=== PATIENT | female | born 1995 | race African-American/Black ===

== ENCOUNTER 2016-05-24 22:35 | Inpatient (IN) | payer OTHER ==
[2016-05-24 23:08] LABS: Hematocrit 40 % (35-47); Hemoglobin 12.7 g/dl (12.0-16.0); Mean Corpuscular HGB Conc 32 g/dl (31-36); Mean Corpuscular Hemoglobin 26 pg (27-31); Mean Corpuscular Volume 80 fL (80-97); Mean Platelet Volume 7 um3 (7.4-10.4); Red Blood Count 4.95 10^6/ul (4.0-5.4); Red Cell Distribution Width 14 % (10.5-15); White Blood Count 6.1 10^3/ul (3.5-10.8)
[2016-05-24 23:27] LABS: Urine Bacteria 1+ (Absent); Urine Bilirubin Negative (Negative); Urine Glucose Negative (Negative); Urine Nitrite Negative (Negative)
[2016-05-24 23:37] LABS: ALT 11 U/L (7-52); AST 13 U/L (13-39); Albumin 4.1 g/dL (3.2-5.2); Alkaline Phosphatase 53 U/L (34-104); Anion Gap 6 mmol/L (2-11); BUN/Creatinine Ratio 15.5 (8-20); Benzodiazepine Urine Screen None Detected (None Detect); Blood Urea Nitrogen 11 mg/dL (6-24); CO2 Carbon Dioxide 29 mmol/L (22-32); Calcium 9.8 mg/dL (8.6-10.3); Chloride 102 mmol/L (101-111); EGFR African American 133.6 (>60); EGFR Non-African American 103.9 (>60); Globulin 3.7 g/dL (2-4); Glucose 109 mg/dL (70-100); Sodium 137 mmol/L (133-145); Total Protein 7.8 g/dL (6.4-8.9)
[2016-05-24 23:40] LABS: Acetaminophen < 15 mcg/mL; Alcohol < 10 mg/dL (<10); Salicylate < 2.50 mg/dL (<30)
--- NOTE | 2016-05-24 23:46 | ED ---
Travis Morrissey Erika, scribed for Clifford Peng MD on 05/24/16 at 2325 . Psychiatric Complaint - HPI Summary HPI Summary: Patient is a 21-year-old female presenting to the ED with a CC of SI. Per police , patient's friend reports that pt stated she had a plan to kill herself. Friend also states that pt has been cutting herself, and police found a razor in her pocket. In the ED, patient states her friends were worried that she would hurt herself, but she denies SI. When asked if she had cut herself, she states "not tonight." Hx bipolar disorder. - History Of Current Complaint Time Seen by Provider: 05/24/16 22:35 Hx Obtained From: Patient, Other: - Police Onset/Duration: Gradual Onset, Still Present Timing: Constant Severity Currently: Moderate Character: Depressed Alleviating Factor(s): Nothing Related History: Positive For: Prior Psychiatric Issues Has Suicidal: Reports: Thoughts - per patient's friend, patient denies, With A Plan - per patient's friend, patient denies - Allergies/Home Medications Allergies/Adverse Reactions: Allergies Allergy/AdvReac Type Severity Reaction Status Date / Time No Known Allergies Allergy Verified 05/24/16 22:42 Home Medications: Home Medications Lamictal 200 mg PO BID 05/25/16 [History Confirmed 05/25/16] Zoloft 150 mg PO BEDTIME 05/25/16 [History Confirmed 05/25/16] PMH/Surg Hx/FS Hx/Imm Hx Endocrine/Hematology History: Denies: Hx Diabetes Cardiovascular History: Denies: Hx Congestive Heart Failure, Hx Hypertension Respiratory History: Reports: Hx Asthma History: Reports: Other Problems/Disorders - ovarian cysts Denies: Hx Renal Disease Psychiatric History: Reports: Hx Bipolar Disorder - Immunization History Date of Tetanus Vaccine: 2012 Date of Influenza Vaccine: 2013 - Family History Known Family History: Positive: Other - bipolar disorder - Social History Occupation: Student Lives: With Family Alcohol Use: Occasionally Hx Substance Use: No Substance Use Type: Reports: None Hx Tobacco Use: No Smoking Status (MU): Never Smoked Tobacco Review of Systems Negative: Fever Skin: Other - healed cuts on arms from cutting Positive: Depressed - with SI per friend All Other Systems Reviewed And Are Negative: Yes Physical Exam Triage Information Reviewed: Yes Vital Signs On Initial Exam: Temp Pulse Resp BP Pulse Ox 98.6 F 100 16 144/85 98 05/24/16 22:35 05/24/16 22:35 05/24/16 22:35 05/24/16 22:35 05/24/16 22:35 Vital Signs Reviewed: Yes Appearance: Positive: Well-Appearing, No Pain Distress Skin: Positive: Warm Head/Face: Positive: Normal Head/Face Inspection Eyes: Positive: JOAQUIN ENT: Positive: Hearing grossly normal Neck: Positive: Supple Respiratory/Lung Sounds: Positive: Breath Sounds Present Cardiovascular: Positive: RRR Abdomen Description: Positive: Nontender, Soft Neurological: Positive: Sensory/Motor Intact, Alert, Oriented to Person Place, Time Psychiatric: Positive: Depressed Diagnostics - Vital Signs Vital Signs Temp Pulse Resp BP Pulse Ox 05/24/16 22:35 98.6 F 100 16 144/85 98 - Laboratory Lab Results: Lab Results 05/24/16 05/24/16 05/24/16 Range/Units 23:00 23:00 23:00 WBC 6.1 (3.5-10.8) 10^3/ul RBC 4.95 (4.0-5.4) 10^6/ul Hgb 12.7 (12.0-16.0) g/dl Hct 40 (35-47) % MCV 80 (80-97) fL MCH 26 L (27-31) pg MCHC 32 (31-36) g/dl RDW 14 (10.5-15) % Plt Count 334 (150-450) 10^3/ul MPV 7 L (7.4-10.4) um3 Neut % (Auto) 58.3 (38-83) % Lymph % (Auto) 33.4 (25-47) % [place] % (Auto) 6.9 (1-9) % Eos % (Auto) 0.8 (0-6) % Baso % (Auto) 0.6 (0-2) % Absolute Neuts (auto) 3.5 (1.5-7.7) 10^3/ul Absolute Lymphs (auto) 2.0 (1.0-4.8) 10^3/ul Absolute Monos (auto) 0.4 (0-0.8) 10^3/ul Absolute Eos (auto) 0.1 (0-0.6) 10^3/ul Absolute Basos (auto) 0 (0-0.2) 10^3/ul Absolute Nucleated RBC 0 10^3/ul Nucleated RBC % 0 Sodium 137 (133-145) mmol/L Potassium 4.0 (3.5-5.0) mmol/L Chloride 102 (101-111) mmol/L Carbon Dioxide 29 (22-32) mmol/L Anion Gap 6 (2-11) mmol/L BUN 11 (6-24) mg/dL Creatinine 0.71 (0.51-0.95) mg/dL Est GFR ( Amer) 133.6 (>60) Est GFR (Non-Af Amer) 103.9 (>60) BUN/Creatinine Ratio 15.5 (8-20) Glucose 109 H (70-100) mg/dL Calcium 9.8 (8.6-10.3) mg/dL Total Bilirubin 0.20 (0.2-1.0) mg/dL AST 13 (13-39) U/L ALT 11 (7-52) U/L Alkaline Phosphatase 53 (34-104) U/L Total Protein 7.8 (6.4-8.9) g/dL Albumin 4.1 (3.2-5.2) g/dL Globulin 3.7 (2-4) g/dL Albumin/Globulin Ratio 1.1 (1-3) TSH Pending Urine Color Yellow Urine Appearance Cloudy Urine pH 5.0 (5-9) Ur Specific Crescent 1.024 (1.010-1.030) Urine Protein 2+(100 mg/dl) H (Negative) Urine Ketones Negative (Negative) Urine Blood Negative (Negative) Urine Nitrate Negative (Negative) Urine Bilirubin Negative (Negative) Urine Urobilinogen Negative (Negative) Ur Leukocyte Esterase 3+ H (Negative) Urine WBC (Auto) Trace(0-5/hpf) (Absent) Urine RBC (Auto) Trace(0-2/hpf) (Absent) Ur Squamous Epith Cells Present H (Absent) Urine Bacteria 1+ H (Absent) Hyaline Casts Present H (Absent) Urine Glucose Negative (Negative) Salicylates < 2.50 (<30) mg/dL Urine Opiates Screen (None Detect) Acetaminophen < 15 mcg/mL Ur Barbiturates Screen (None Detect) Ur Phencyclidine Scrn (None Detect) Ur Amphetamines Screen (None Detect) U Benzodiazepines Scrn (None Detect) Urine Cocaine Screen (None Detect) U Cannabinoids Screen (None Detect) Serum Alcohol < 10 (<10) mg/dL 05/24/16 Range/Units 23:00 WBC (3.5-10.8) 10^3/ul RBC (4.0-5.4) 10^6/ul Hgb (12.0-16.0) g/dl Hct (35-47) % MCV (80-97) fL MCH (27-31) pg MCHC (31-36) g/dl RDW (10.5-15) % Plt Count (150-450) 10^3/ul MPV (7.4-10.4) um3 Neut % (Auto) (38-83) % Lymph % (Auto) (25-47) % [place] % (Auto) (1-9) % Eos % (Auto) (0-6) % Baso % (Auto) (0-2) % Absolute Neuts (auto) (1.5-7.7) 10^3/ul Absolute Lymphs (auto) (1.0-4.8) 10^3/ul Absolute Monos (auto) (0-0.8) 10^3/ul Absolute Eos (auto) (0-0.6) 10^3/ul Absolute Basos (auto) (0-0.2) 10^3/ul Absolute Nucleated RBC 10^3/ul Nucleated RBC % Sodium (133-145) mmol/L Potassium (3.5-5.0) mmol/L Chloride (101-111) mmol/L Carbon Dioxide (22-32) mmol/L Anion Gap (2-11) mmol/L BUN (6-24) mg/dL Creatinine (0.51-0.95) mg/dL Est GFR ( Amer) (>60) Est GFR (Non-Af Amer) (>60) BUN/Creatinine Ratio (8-20) Glucose (70-100) mg/dL Calcium (8.6-10.3) mg/dL Total Bilirubin (0.2-1.0) mg/dL AST (13-39) U/L ALT (7-52) U/L Alkaline Phosphatase (34-104) U/L Total Protein (6.4-8.9) g/dL Albumin (3.2-5.2) g/dL Globulin (2-4) g/dL Albumin/Globulin Ratio (1-3) TSH Urine Color Urine Appearance Urine pH (5-9) Ur Specific Crescent (1.010-1.030) Urine Protein (Negative) Urine Ketones (Negative) Urine Blood (Negative) Urine Nitrate (Negative) Urine Bilirubin (Negative) Urine Urobilinogen (Negative) Ur Leukocyte Esterase (Negative) Urine WBC (Auto) (Absent) Urine RBC (Auto) (Absent) Ur Squamous Epith Cells (Absent) Urine Bacteria (Absent) Hyaline Casts (Absent) Urine Glucose (Negative) Salicylates (<30) mg/dL Urine Opiates Screen None detected (None Detect) Acetaminophen mcg/mL Ur Barbiturates Screen None detected (None Detect) Ur Phencyclidine Scrn None detected (None Detect) Ur Amphetamines Screen None detected (None Detect) U Benzodiazepines Scrn None detected (None Detect) Urine Cocaine Screen None detected (None Detect) U Cannabinoids Screen None detected (None Detect) Serum Alcohol (<10) mg/dL Result Diagrams: 05/24/16 23:00 05/24/16 23:00 Lab Statement: Any lab studies that have been ordered have been reviewed, and results considered in the medical decision making process. Course/Dx - Course Assessment/Plan: Patient is medically cleared for MHU evaluation at 23:35. - Differential Dx/Clinical Impression Provider Diagnosis: Suicidal ideations Discharge - Discharge Plan Condition: Stable Disposition: ADMITTED TO [facility] Referrals: [facility] CAL Godoy [Primary Care Provider] - The documentation as recorded by the Travis bee Erika accurately reflects the service I personally performed and the decisions made by Danish kendall David, MD.
[2016-05-24 23:51] LABS: TSH (Thyroid Stimulating Horm) 1.76 mcIU/mL (0.34-5.60)
[2016-05-25] MEDS ORDERED: Al Hydrox/Mg Hydrox/Simet LIQ* 30 ML UDC PO PRN (05:11)
[2016-05-25] MEDS ORDERED: Acetaminophen TAB* 325 MG PO PRN (05:11)
[2016-05-25] MEDS: Vitamin THERAPEUTIC TAB PO SCH (09:34)
[2016-05-25] MEDS: lamoTRIgine TAB(*) 100 MG PO SCH ×2 (09:34→21:30)
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
--- NOTE | 2016-05-25 13:26 | PN ---
MHU: Group Therapy Note - Service Type Service Type: 31806 Group Psychotherapy - Cognitive Behavioral Group Therapy ( CBT):Patient attended CBT programming this morning and presented with flat affect that did not vary with discussion. Although responsive to direct prompts to respond to questions, patient did not engage in spontaneous conversation.
[2016-05-25] MEDS ORDERED: ETHINYL ESTRADIOL PO SCH (14:45)
[2016-05-25] MEDS ORDERED: NORGESTIMATE PO SCH (14:45)
[2016-05-25] MEDS ORDERED: PREVIFEM PO SCH ×2 (15:30→21:00)
[2016-05-25] MEDS ORDERED: Sertraline* 50 MG TAB PO SCH (21:00)
[2016-05-26 07:42] VITALS: BP 129/71
[2016-05-26] MEDS: lamoTRIgine TAB(*) 100 MG PO SCH (08:33)
[2016-05-26] MEDS: Vitamin THERAPEUTIC TAB PO SCH (08:34)
--- NOTE | 2016-05-26 11:47 | PN ---
MHU: Group Therapy Note - Service Type Service Type: 07657 Group Psychotherapy - Cognitive Behavioral Group Therapy ( CBT):Patient was attentive and participatory in CBT programming this morning, and remained in good behavioral control. Patient expressed positive insights regarding relevant treatment interventions and goals.
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
== END 2016-05-26 13:20 | disposition home or self-care (01) | DRG 885 ==
LOC: ED 22:35 → BSU 05-25 05:53
PROVIDERS: ADMIT Internal Medicine; ATTEND Psychiatry & Neurology Psychiatry
DX: F31.89 Other bipolar disorder (principal); E66.9 Obesity, unspecified; F42.9 Obsessive-compulsive disorder, unspecified; Z68.30 Body mass index [BMI] 30.0-30.9, adult; Z79.899 Other long term (current) drug therapy; Z81.8 Family history of other mental and behavioral disorders
CPT/HCPCS: 36415; 80053; 80307; 80320; 80329; 81003; 81015; 84443; 85025; 87086; 90853; 96102; 99222; 99238; A9270-GY; G0480